=== PATIENT | male | born 1995 | race Caucasian/White ===

== ENCOUNTER 2018-04-25 15:05 | Emergency (ER) | payer MEDICAID, OTHER, SELFPAY ==
[~2018-04-25] VITALS: Ht 170.2 cm; Wt 113.1 kg
[2018-04-25 15:07] VITALS: BP 157/114
[2018-04-25] MEDS ORDERED: L.E.T SOLUTION TP ONE ×2 (15:22→15:30)
[2018-04-25] MEDS ORDERED: LIDOCAINE-MPF 2%, 2ML ONE (15:23)
[2018-04-25] MEDS ORDERED: LIDOCAINE 2%, 20ML SQ ONE (15:30)
[2018-04-25] MEDS ORDERED: DIPH,PERTUSS(ACELL),TET VAC/PF 0.5 ML IM-VACC ONE ×2 (15:30→16:24)
== END 2018-04-25 17:01 | disposition home or self-care (01) ==
LOC: ED 16:30
DX: S01.551A Open bite of lip, initial encounter (principal); W54.0XXA Bitten by dog, initial encounter; Y93.89 Activity, other specified; Y99.8 Other external cause status; Y92.89 Other specified places as the place of occurrence of the external cause
CPT/HCPCS: 12051; 41252; 90471; 90715; 99285; J3490

== ENCOUNTER 2019-01-05 10:56 | Emergency (ER) | payer MEDICAID ==
[~2019-01-05] VITALS: Ht 170.2 cm; Wt 121.5 kg
[2019-01-05 11:00] VITALS: BP 151/89
== END 2019-01-05 11:12 | disposition home or self-care (01) ==
LOC: ED 11:06
DX: J00 Acute nasopharyngitis [common cold] (principal)
CPT/HCPCS: 99283